=== PATIENT | male | born 1960 | race Caucasian/White ===

== ENCOUNTER 2020-12-28 21:12 | Emergency (ER) | payer BC ==
[2020-12-28] MEDS ORDERED: Sodium Chloride 0.9% 1,000 ML IV ONE (21:42)
[2020-12-28] MEDS ORDERED: Ondansetron 4 MG/2 ML SDV IVPUSH ONE (21:42)
[2020-12-28] MEDS ORDERED: Sodium Chloride 0.9% 2.5 ML Syringe FLUSH PRN (21:42)
[2020-12-28] MEDS ORDERED: Sodium Chloride 0.9% 10 ML Syringe FLUSH PRN (21:42)
[2020-12-28 22:43] LABS: BLOOD UREA NITROGEN,BUN 10 mg/dL (7.0-18.0); CARBON DIOXIDE,CO2 25.8 mmol/L (21.0-32.0); CHLORIDE,CL 99 mmol/L (98-107); GLUCOSE RANDOM 84 mg/dL (74-106); LIPASE 224 U/L (73-393); POTASSIUM,K 3.2 mmol/L (3.5-5.1); SODIUM,NA 138 mmol/L (136-148)
[2020-12-28] MEDS ORDERED: Iopamidol 755 MG/ML 500 ML Multipack Bottle IVPUSH STA (23:01)
--- NOTE | 2020-12-28 23:38 | CT ---
INDICATION: Abdominal pain. COMPARISON: None available TECHNIQUE: CT examination of the abdomen and pelvis was performed with the uneventful intravenous administration of 100 cc of Isovue 370 while 2.5 mm thick axial sections were obtained from the lung bases through the pubic symphysis. Oral contrast was not administered. Please note that all CT scans at this facility use dose modulation, iterative reconstruction, and/or weight-based dosing when appropriate to reduce radiation dose to as low as reasonably achievable. FINDINGS: In the abdomen, the liver, spleen, pancreas, and left adrenal are normal in appearance. There is an indeterminate density right adrenal nodule measuring 3.4 x 3.1 centimeters with density of 64 Hounsfield units. This can be further evaluated on a non emergent basis using with and without contrast CT of the abdomen to calculate washout versus MR of the abdomen using in-and out of phase imaging. The kidneys are normal in appearance. The gallbladder is normal in appearance. The abdominal aorta is normal in caliber with no sign of dilatation. There is no sign of retroperitoneal mass or adenopathy. The stomach, loops of small bowel, and colon in the abdomen are normal in appearance. There is a tiny fat containing periumbilical hernia. In the pelvis, the appendix is mildly dilated at 10 millimeters, without any periappendiceal inflammatory reaction to suggest appendicitis. Recommend correlation with the clinical exam. The loops of small bowel and colon in the pelvis are normal in appearance. The prostate is normal in appearance. The urinary bladder is normal in appearance. There is no sign of pelvic or inguinal mass or adenopathy. There is no sign of free air or free fluid in the abdomen or pelvis. The lung bases are clear. The osseous structures are normal in appearance for the patient`s age. IMPRESSION: CT of the abdomen shows a 3.4 x 3.1 centimeter indeterminate density right adrenal mass. This can be further evaluated on a nonemergent basis using with and without contrast CT of the abdomen to determine washout versus MR of the abdomen using in- and out of phase imaging. CT of the pelvis shows mild dilatation of the appendix to 10 millimeters, but without any periappendiceal inflammatory changes to suggest acute appendicitis. Recommend correlation with the clinical exam. Please note that all CT scans at this facility use dose modulation, iterative reconstruction, and/or weight-based dosing when appropriate to reduce radiation dose to as low as reasonably achievable. Dictated by Clemente Herron MD @ Dec 28 2020 11:28PM Signed by Dr. Clemente Herron @ Dec 28 2020 11:36PM
--- NOTE | 2020-12-28 23:59 | EDM.PDOC ---
ED HPI GENERAL MEDICAL PROBLEM - General Chief Complaint: Abdominal Pain Stated Complaint: STOMACH PAIN Time Seen by Provider: 12/28/20 21:31 - History of Present Illness INITIAL COMMENTS - FREE TEXT/NARRATIVE: HISTORY AND PHYSICAL: History of present illness: This is a 60-year-old gentleman with a significant past medical history for hypertension, hypercholesterolemia who presents ER today secondary to intermittent episodes of abdominal pain and discomfort that is diffuse in nature for the last 2 months. Patient reports that he feels that his abdomen is distended and that the amount of food that he is taking in seems to be much more than the amount of stool that is coming out of him recently. Patient denies any recent fevers, shakes, chills, nausea, vomiting, diarrhea, dysuria, frequency, urgency, chest pain, shortness of breath. Patient denies any melena or bright red blood per rectum. Patient denies any recent weight gain or weight loss. Patient reports he been eating and drinking without any difficulty. Patient reports that he drinks approximately 6-8 beers every day for years. Patient reports that the pain is diffuse but greatest in the left lower quadrant. Patient has no pain with ambulation, cough. Review of systems: As per history of present illness and below otherwise all systems reviewed and negative. Past medical history: As per history of present illness and as reviewed below otherwise noncontributory. Surgical history: As per history of present illness and as reviewed below otherwise noncontributory. Social history: No reported history of drug or alcohol abuse. Family history: As per history of present illness and as reviewed below otherwise noncontributory. Physical exam: This patient was seen and evaluated during the 2019 SARS-CoV-2 novel coronavirus pandemic period. Community viral transmission is ongoing at time of this encounter and the emergency department is operating under pandemic response procedures. Constitutional: Patient is oriented to person, place, and time. Appears well- developed and well-nourished. No distress. HEENT: Moist mucous membranes Head: Normocephalic and atraumatic Eyes: Right eye exhibits no discharge. Left eye exhibits no discharge. No scleral icterus Neck: Normal range of motion. No tracheal deviation present. Cardiovascular: Normal rate and regular rhythm. Pulmonary: Effort normal, no respiratory distress. Abd: Soft, nondistended, no rebound/guarding, no psoas or obturator signs, no tenderness at Mcberney's point, no Bueno's sign. Pt does not present with an exam that would be consistent with an acute surgical abdomen at this time, nontender to deep palpation throughout his abdomen. Musculoskeletal: Normal range of motion Neurologic: Alert and oriented to person, place and time. Skin: [place], warm and dry. Psychiatric: Normal mood and affect. Behavior is normal. Judgment and thought content normal. Nursing note and vital signs have been reviewed Diagnostics: CBC, CMP, lipase, urinalysis within normal limits. EKG: As interpreted by ER physician: Pedro: Nonspecific ST-T wave abnormalities Normal axis No evidence of ST elevation NV Normal sinus rhythm heart rate of 88 IMPRESSION: CT of the abdomen shows a 3.4 x 3.1 centimeter indeterminate density right adrenal mass. This can be further evaluated on a nonemergent basis using with and without contrast CT of the abdomen to determine washout versus MR of the abdomen using in- and out of phase imaging. CT of the pelvis shows mild dilatation of the appendix to 10 millimeters, but without any periappendiceal inflammatory changes to suggest acute appendicitis. Recommend correlation with the clinical exam. Therapeutics: NSS x1 L Assessment and plan: 60-year-old gentleman who presents ER today complaining of intermittent episodes of abdominal pain x2 months. Patient presented to the ER today secondary to concerns that the amount of stool that is coming out of him is not near as much as he would expect with the amount of food that he has been taking. Patient reports that he does drink approximately 8 beers per day and did have 8 beers earlier today. Patient denies any change in his diet. Patient denies any other symptoms at this time. Patient CT scan reveals an appendix of 10 mm but without any periappendiceal inflammatory changes to suggest acute appendicitis. On the patient's exam, patient has no evidence of appendicitis on exam. Patient has no tenderness to his right lower quadrant and he reports that his pain is completely resolved while waiting in the ED. Patient has no rebound, no guarding, no tenderness at McBurney's point. No psoas or obturator signs. Patient feels very comfortable with the plan to be discharged home and to continue his evaluation as an outpatient with his primary care physician. CT report has been discussed with the patient and need to follow-up with his primary care physician for outpatient evaluation of a right adrenal mass. Reassessment at the time of disposition demonstrates that the patient is in no acute distress. The patient has remained stable throughout the entire ED visit and is without objective evidence for acute process requiring urgent interventi on or hospitalization. The patient is stable for discharge, counseling is provided as documented above, discussed symptomatic treatment and specific conditions for return. I have spoken with the patient/caregiver and discussed todays findings, in addition to providing specific details for the plan of care. Questions are answered and there is agreement with the plan. Definitive disposition and diagnosis as appropriate pending reevaluation and review of above. abdomen Pain Score (Numeric/FACES): 4 - Related Data Allergies Allergy/AdvReac Type Severity Reaction Status Date / Time No Known Allergies Allergy Verified 12/28/20 21:31 Home Meds: Home Meds Hydrochlorothiazide/Lisinopril [Lisinopril/HCTZ 20-12.5 MG] 1 tab PO DAILY 12/28/20 [History] Meloxicam [Mobic] 15 mg PO DAILY 12/28/20 [History] Omeprazole 40 mg PO DAILY 12/28/20 [History] Sildenafil [Revatio] 2 - 5 cap PO ASDIRECTED PRN 12/28/20 [History] atenoloL [Atenolol] 50 mg PO DAILY 12/28/20 [History] atorvaSTATin [Lipitor] 40 mg PO DAILY 12/28/20 [History] Past Medical History Cardiovascular History: Reports: Hypertension Gastrointestinal History: Reports: GERD Other Genitourinary History: cyst on scrotum - Infectious Disease History Infectious Disease History: Reports: Chicken Pox, Measles, Mumps - Past Surgical History Other Male Surgeries/Procedures: ED Social & Family History - Family History Family Medical History: No Pertinent Family History - Caffeine Use Caffeine Use: Reports: Coffee, Soda - Recreational Drug Use Recreational Drug Use: No ED ROS GENERAL - Review of Systems Review Of Systems: See Below ED EXAM, GENERAL - Physical Exam Exam: See Below Course - Vital Signs Last Recorded V/S: Last Vital Signs Temp 97.6 F 12/28/20 21:32 Pulse 95 12/28/20 21:32 Resp 18 12/28/20 21:32 BP 137/80 12/28/20 21:32 Pulse Ox 95 12/28/20 21:32 - Orders/Labs/Meds Orders: Active Orders 24 hr Category Date Time Status EKG Documentation Completion [RC] AM Care 12/28/20 21:42 Active Sodium Chloride 0.9% [Saline Flush] Med 12/28/20 21:42 Active 10 ml FLUSH ASDIRECTED PRN Sodium Chloride 0.9% [Saline Flush] Med 12/28/20 21:42 Active 2.5 ml FLUSH ASDIRECTED PRN Saline Lock Insert [OM.PC] Stat Oth 12/28/20 21:42 Ordered Medication Orders Sodium Chloride (Sodium Chloride 0.9% 10 Ml Syringe) 10 ml FLUSH ASDIRECTED PRN PRN Reason: Keep Vein Open Last Admin: 12/28/20 22:16 Dose: 10 ml Documented by: MOIZ Sodium Chloride (Sodium Chloride 0.9% 2.5 Ml Syringe) 2.5 ml FLUSH ASDIRECTED PRN PRN Reason: Keep Vein Open Last Admin: 12/28/20 22:16 Dose: 2.5 ml Documented by: MOIZ Labs: Laboratory Tests 12/28/20 12/28/20 12/28/20 Range/Units 21:43 22:12 22:12 WBC 12.11 H (4.0-11.0) K/uL RBC 4.80 (4.50-5.90) M/uL Hgb 16.0 (13.0-17.0) g/dL Hct 46.4 (38.0-50.0) % MCV 96.7 (80.0-98.0) fL MCH 33.3 H (27.0-32.0) pg MCHC 34.5 (31.0-37.0) g/dL RDW Std Deviation 46.3 (28.0-62.0) fl RDW Coeff of Darin 13 (11.0-15.0) % Plt Count 246 (150-400) K/uL MPV 10.40 (7.40-12.00) fL Neut % (Auto) 52.0 (48.0-80.0) % Lymph % (Auto) 37.8 (16.0-40.0) % Elbert % (Auto) 7.7 (0.0-15.0) % Eos % (Auto) 2.2 (0.0-7.0) % Baso % (Auto) 0.3 (0.0-1.5) % Neut # (Auto) 6.3 H (1.4-5.7) K/uL Lymph # (Auto) 4.6 H (0.6-2.4) K/uL Elbert # (Auto) 0.9 H (0.0-0.8) K/uL Eos # (Auto) 0.3 (0.0-0.7) K/uL Baso # (Auto) 0.0 (0.0-0.1) K/uL Nucleated RBC % 0.0 /100WBC Nucleated RBCs # 0 K/uL Sodium 138 (136-148) mmol/L Potassium 3.2 L (3.5-5.1) mmol/L Chloride 99 (98-107) mmol/L Carbon Dioxide 25.8 (21.0-32.0) mmol/L BUN 10 (7.0-18.0) mg/dL Creatinine 1.0 (0.8-1.3) mg/dL Est Cr Clr Drug Dosing 82.13 mL/min Estimated GFR (MDRD) > 60.0 ml/min Glucose 84 (74-106) mg/dL Calcium 8.5 (8.5-10.1) mg/dL Total Bilirubin 0.4 (0.2-1.0) mg/dL AST 38 H (15-37) IU/L ALT 62 (14-63) IU/L Alkaline Phosphatase 68 (46-116) U/L Troponin I < 0.050 (0.000-0.056) ng/mL Total Protein 7.4 (6.4-8.2) g/dL Albumin 3.7 (3.4-5.0) g/dL Globulin 3.7 (2.6-4.0) g/dL Albumin/Globulin Ratio 1.0 (0.9-1.6) Lipase 224 (73-393) U/L Urine Color YELLOW Urine Appearance CLEAR Urine pH 6.0 (5.0-8.0) Ur Specific [place] <= 1.005 (1.001-1.035) Urine Protein NEGATIVE (NEGATIVE) mg/dL Urine Glucose (UA) NEGATIVE (NEGATIVE) mg/dL Urine Ketones NEGATIVE (NEGATIVE) mg/dL Urine Occult Blood NEGATIVE (NEGATIVE) Urine Nitrite NEGATIVE (NEGATIVE) Urine Bilirubin NEGATIVE (NEGATIVE) Urine Urobilinogen 0.2 (<2.0) EU/dL Ur Leukocyte Esterase NEGATIVE (NEGATIVE) Meds: Medications Generic Name Dose Route Start Last Admin Trade Name Freq PRN Reason Stop Dose Admin Sodium Chloride 10 ml 12/28/20 21:42 12/28/20 22:16 Sodium Chloride 0.9% 10 Ml Syringe FLUSH 10 ml ASDIRECTED PRN Administration Keep Vein Open Sodium Chloride 2.5 ml 12/28/20 21:42 12/28/20 22:16 Sodium Chloride 0.9% 2.5 Ml Syringe FLUSH 2.5 ml ASDIRECTED PRN Administration Keep Vein Open Discontinued Medications Generic Name Dose Route Start Last Admin Trade Name Freq PRN Reason Stop Dose Admin Sodium Chloride 1,000 mls @ 999 mls/hr 12/28/20 21:42 12/28/20 22:13 Normal Saline IV 12/28/20 22:42 999 mls/hr .Bolus ONE Administration Iopamidol 100 ml 12/28/20 23:01 12/28/20 23:01 Iopamidol 755 Mg/Ml 500 Ml Multipack Bottle IVPUSH 12/28/20 23:02 100 ml ONETIME STA Administration Ondansetron HCl 4 mg 12/28/20 21:42 12/28/20 22:14 Ondansetron 4 Mg/2 Ml Sdv IVPUSH 12/28/20 21:43 4 mg ONETIME ONE Administration Departure - Departure Time of Disposition: 23:55 Disposition: Home, Self-Care 01 Condition: Good Clinical Impression: Abdominal pain Qualifiers: Abdominal location: generalized Qualified Code(s): R10.84 - Generalized abdominal pain - Discharge Information Referrals: PCP,Not In Area [Primary Care Provider] - Additional Instructions: Your seen and evaluated in the ER today secondary to pain that you have had in your abdomen, abdominal distention and concerns with regards to not enough stool relative to the amount of food intake that you have been consuming. Your work- up in the emergency department today was normal with no evidence of appendicitis or diverticulitis. As we discussed, there was an incidental finding of a right adrenal mass that will need to be further evaluated by your doctor. Please drink plenty of fluids and make an appointment to see your family doctor the next 2 to 3 days for reevaluation. Your images that were obtained today revealed some incidental findings that were not related to your primary complaint. Those findings do not appear emergent in nature, however, will require the attention of your family physician and further outpatient evaluation. Please follow up with your primary doctor to have these addressed. The following information is given to patients seen in the emergency department who are being discharged to home. This information is to outline your options for follow-up care. We provide all patients seen in our emergency department with a follow-up referral. The need for follow-up, as well as the timing and circumstances, are variable depending upon the specifics of your emergency department visit. If you don't have a primary care physician on staff, we will provide you with a referral. We always advise you to contact your personal physician following an emergency department visit to inform them of the circumstance of the visit and for follow-up with them and/or the need for any referrals to a consulting specialist. The emergency department will also refer you to a specialist when appropriate. This referral assures that you have the opportunity for follow-up care with a specialist. All of these measure are taken in an effort to provide you with optimal care, which includes your follow-up. Under all circumstances we always encourage you to contact your private physician who remains a resource for coordinating your care. When calling for follow-up care, please make the office aware that this follow-up is from your recent emergency room visit. If for any reason you are refused follow-up, please contact the [facility] Emergency Department at and asked to speak to the emergency department charge nurse. [facility] - Primary Care [address] [place] [address] [place] [address] Sepsis Event Note (ED) - Evaluation Sepsis Screening Result: No Definite Risk - Focused Exam Vital Signs: Vital Signs Temp Pulse Resp BP Pulse Ox 12/28/20 21:32 97.6 F 95 18 137/80 95 - My Orders Last 24 Hours: My Active Orders 12/28/20 21:42 EKG Documentation Completion [RC] AM Sodium Chloride 0.9% [Saline Flush] 10 ml FLUSH ASDIRECTED PRN Sodium Chloride 0.9% [Saline Flush] 2.5 ml FLUSH ASDIRECTED PRN Saline Lock Insert [OM.PC] Stat - Assessment/Plan Last 24 Hours: My Active Orders 12/28/20 21:42 EKG Documentation Completion [RC] AM Sodium Chloride 0.9% [Saline Flush] 10 ml FLUSH ASDIRECTED PRN Sodium Chloride 0.9% [Saline Flush] 2.5 ml FLUSH ASDIRECTED PRN Saline Lock Insert [OM.PC] Stat
== END 2020-12-29 00:13 | disposition home or self-care (01) ==
LOC: MW.ED 21:12
DX: R10.84 Generalized abdominal pain (principal); K21.9 Gastro-esophageal reflux disease without esophagitis; I10 Essential (primary) hypertension; Z79.899 Other long term (current) drug therapy
CPT/HCPCS: 36415; 74177; 80053; 81003; 83690; 84484; 85025; 93005; 96374; 99284; J2405; J7030; Q9967; 93010

== ENCOUNTER 2022-10-06 11:40 | Emergency (ER) | payer BC ==
[2022-10-06] MEDS ORDERED: Sodium Chloride 0.9% 2.5 ML Syringe FLUSH PRN (11:42)
[2022-10-06] MEDS ORDERED: Sodium Chloride 0.9% 10 ML Syringe FLUSH PRN (11:42)
[2022-10-06] MEDS ORDERED: Aspirin 81 MG Tab.Chew PO ONE (11:58)
[2022-10-06] MEDS ORDERED: Alum Hydro/Mag Hydro/Simeth XS 15 ML, Metoclopramide 5 MG, Lidocaine 2% 5 ML PO ONE ×3 (11:59)
[2022-10-06 12:29] LABS: CARBON DIOXIDE,CO2 29.1 mmol/L (21.0-32.0); POTASSIUM,K 3.7 mmol/L (3.5-5.1)
[2022-10-06 12:38] LABS: CORONAVIRUS COVID-19 NAA NEGATIVE (NEGATIVE); INFLUENZA A NAA NEGATIVE (NEGATIVE); INFLUENZA B NAA NEGATIVE (NEGATIVE); RESPIRATORY SYNCYTIAL VIR NAA NEGATIVE (NEGATIVE)
== END 2022-10-06 14:09 | disposition home or self-care (01) ==
LOC: MW.ED 11:40
DX: R07.9 Chest pain, unspecified (principal); R10.13 Epigastric pain; I10 Essential (primary) hypertension; Z79.899 Other long term (current) drug therapy; Z20.822 Contact with and (suspected) exposure to COVID-19
CPT/HCPCS: 0241U; 36415; 71045; 80053; 83690; 84484; 85025; 93005; 99285; A9270; J3490; 93010; 99283